=== PATIENT | male | born 1965 ===

== ENCOUNTER 2023-01-08 10:00 | Outpatient (RCR) | payer OTHER, SELFPAY ==
[2022-12-18 12:56] VITALS: BP 135/73; PULSE 78; TEMP 37.2
[2022-12-18 13:11] VITALS: BMI 22.4
--- NOTE | 2022-12-18 15:19 | PC.ADMIT ---
Patient is a 57 year old male who was referred to PHP by [facility] where he was admitted d/t ETOH use. Patient has a long history of ETOH use starting at age 19 and has gone to many detoxes and rehab admissions during the past 10 years. Reports longest period of sobriety is 19 months. Patient stated he is living in a sober house at present for the first time and attending PHP for the first time as he is trying to do things differently and stay sober. He stated he is going to AA meetings daily and recently got a sponsor. See Integrative Assessment for more information. Patient is alert and oriented x4. Calm and cooperative. Presented with depressed mood and anxious affect. Denied SI or thoughts to harm himself. Patient given a copy of his safety plan if needed. Medications reconciled with [facility] discharge paperwork and patient. Patient reports taking medications as prescribed.
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
--- NOTE | 2022-12-20 07:33 | HO.PHP ---
The clients case was reviewed and opened in treatment team
[2022-12-20 14:56] LABS: Amphetamine Screen Urine Not Detected (Not Detect); Barbiturates, Urine Not Detected (Not Detect); Benzodiazepines Screen Urine Not Detected (Not Detect); Cannabinoid Screen Urine Not Detected (Not Detect); Cocaine Screen Urine Not Detected (Not Detect); Fentanyl, urine POSITIVE (Not Detect); Opiate Screen Urine Not Detected (Not Detect); Phencyclidine Screen Urine Not Detected (Not Detect)
--- NOTE | 2022-12-23 10:13 | PC.NURSE ---
Patient did not show up to the program this morning. Staff called patient and patient reported he has been sick all weekend. [facility] staff is aware.
--- NOTE | 2022-12-24 15:18 | HO.PHP ---
Afsaneh called out sick
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
--- NOTE | 2022-12-31 13:07 | HO.PHP ---
The client called out sick . He reports that he has bronchitis and is on steroids.
--- NOTE | 2023-01-01 13:42 | HO.PHP ---
I left a message for Suzanne Hewitt [facility] to make a referral for the client for outpatient therapy
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
--- NOTE | 2023-01-08 12:10 | HO.PHPPROGNO ---
Subjective Subjective Date of Service: 01/08/23 Reason For Visit: depression,anxiety,alcohol use Medical Problems Affecting Mental Status: No Interim History: Reports doing well. Stable mood/affect. Remains abstinent from alcohol. Has found program helpful. Has returned to work part-time. No SI/HI, no safety concerns. Feels stable for discharge from [facility] at this time. Medication Compliance: Yes Side effects from medications: No Attending Groups: Yes Review of Systems Acute medical concerns: No Medical Review of Systems: unchanged Review of Systems Review of Systems Yes all other systems are reviewed and are negative Constitutional: Reports no additional constitutional complaints Mental Status Exam Mental Status Exam Narrative: Stable mood / affect. No SI. Patient Appearance: Well Grooomed Patient Orientation: Person, Place, Time and Situation Level of Consciousness: Appropriate and Alert Patient Behavior: Appropriate, Cooperative and Good Eye Contact Mood Description: Calm and Appropriate Affect Description: Appropriate Patient Cognition Impaired: No Ability to Follow Directions: Excellent Speech Pattern: Clear and Appropriate Memory Description: Intact Hallucinations: None Delusions: Not Present Thought Process: Intact Thought Content: positive for Intact Judgement: Good Diagnostics Vital Signs (24Hr): BMI result Body Mass Index 22.4 Assessment & Plan Assessment & Plan (1) Alcohol dependence: Status: Acute Code(s): F10.20 - Alcohol dependence, uncomplicated Assessment and Plan: Remains abstinent from alcohol. Has recovery support network in place. Has an AA home group. Has a therapist. Plans to do step work with a sponsor. (2) Major depressive disorder, recurrent, moderate: Status: Acute Code(s): F33.1 - Major depressive disorder, recurrent, moderate Assessment and Plan: Feels depression and anxiety are much improved. Feels ready for discharge. No SI/HI, no safety concerns. No medication concerns. (3) Generalized anxiety disorder: Status: Acute Code(s): F41.1 - Generalized anxiety disorder Plan 1. Patient appears stable for discharge from [facility] at this time. 2. Patient to follow-up with outpatient providers going forward. Patient educated on: diagnosis, medication risk/benefits, substance abuse and therapeutic strategies Informed Consent: understands Reason for contiued partial hosp. stay Substantial Risk for: stable for discharge Certification I certify that partial hospital treatment is medically necessary due to the symptoms and problems resulting from the patient's mental illness and the failure to treat the patient at the partial hospital level of care would likely result in the patient requiring inpatient psychiatric care which could not be prevented at a less intensive level of care. Total time managing care of this patient today __20__ minutes. Discharge Plan Discharge Attending provider: Hira Raymond Medications: No Action gabapentin 600 mg tablet 1 tab PO DAILY hydroxyzine pamoate 50 mg capsule 1 cap PO TID PRN (Reason: Anxiety) trazodone 100 mg Tablet 100 mg PO BEDTIME PRN (Reason: Insomnia) fluoxetine 10 mg Capsule 20 mg PO DAILY Label Comments: Patient stated increased from 10 mg to 20 mg daily. folic acid 1 mg Tablet 1 mg PO DAILY disulfiram 500 mg tablet 1 tab PO DAILY Centrum Silver Tablet 1 tab PO DAILY Centrum Silver Men Stand Alone Forms: Patient Portal Discharge page
== END 2023-01-08 23:59 | disposition home or self-care (01) ==
LOC: HO.PHPA 10:00
PROVIDERS: Visit Provider Psychiatry & Neurology Psychiatry
DX: F33.1 Major depressive disorder, recurrent, moderate (principal); F41.1 Generalized anxiety disorder; F10.20 Alcohol dependence, uncomplicated; Z79.899 Other long term (current) drug therapy
CPT/HCPCS: 80307; 90791; 90853